=== PATIENT | male | born 1955 | race Caucasian/White ===

== ENCOUNTER 2016-11-28 21:26 | Emergency (ER) | payer SELFPAY | END 2016-11-29 02:39 | disposition home or self-care (01) | LOC: D.ER 21:26 | DX: S09.90XA Unspecified injury of head, initial encounter (principal); W22.8XXA Striking against or struck by other objects, initial encounter; Y93.89 Activity, other specified; Y92.019 Unspecified place in single-family (private) house as the place of occurrence of the external cause; F32.9 Major depressive disorder, single episode, unspecified ==

== ENCOUNTER 2017-06-05 19:31 | Emergency (ER) | payer MEDICAID ==
[2017-06-05 20:10] LABS: BASOPHILS 1.1 % (0-2); EOSINOPHILS 1.4 % (0-7); HEMATOCRIT 35.6 % (42.0-54.0); HEMOGLOBIN 11.8 g/dL (13.5-17.5); IMMATURE GRANULOCYTES 0.2 % (0-5); LYMPHOCYTES 41.5 % (15-50); MCH 29.1 pg (26.0-34.0); MCHC 33.1 g/dL (31.0-37.0); MCV 87.7 fL (80.0-100.0); MEAN PLATELET VOLUME 10.3 fL (7.4-10.4); MONOCYTES 12.9 % (2-11); NEUTROPHILS 42.9 % (40-80); RBC 4.06 10x6/uL (4.20-6.10); RDW 14.3 % (11.5-14.5); WBC 5.7 10x3/uL (4.8-10.8)
[2017-06-05 20:33] LABS: PLATELET COUNT 224 10x3/uL (130-400)
[2017-06-05 20:36] LABS: APPEARANCE HAZY (CLEAR); COLOR YELLOW (YELLOW); LEUKOCYTE ESTERASE TRACE (NEGATIVE); NITRITE NEGATIVE (NEGATIVE); SPECIFIC GRAVITY 1.015 (1.005-1.020)
[2017-06-05 20:37] LABS: BILIRUBIN NEGATIVE (NEGATIVE); GLUCOSE NEGATIVE (NEGATIVE); KETONE NEGATIVE (NEGATIVE); PROTEIN TRACE mg/dL (NEGATIVE); UROBILINOGEN NORMAL (NORMAL)
[2017-06-05 20:38] LABS: BACTERIA FEW /hpf (NONE SEEN); RED CELLS - URINE 25-50 /hpf (0-5)
[2017-06-05 20:47] LABS: ALBUMIN 3.1 g/dL (3.4-5.0); BILIRUBIN - TOTAL 1.4 mg/dL (0.2-1.3); CREATININE - SERUM 2.8 mg/dL (0.6-1.3); PROTEIN - SERUM 7.1 g/dL (6.4-8.2)
== END 2017-06-06 | disposition home or self-care (01) ==
LOC: D.ER 19:31
PROVIDERS: Emergency Medicine
DX: R53.1 Weakness (principal); N39.0 Urinary tract infection, site not specified; D64.9 Anemia, unspecified; N17.9 Acute kidney failure, unspecified

== ENCOUNTER → 2017-08-04 07:53 | Outpatient (CLI) | payer MEDICAID | END | disposition home or self-care (01) | LOC: D.RT 07:53 | DX: I10 Essential (primary) hypertension (principal); I71.2 Thoracic aortic aneurysm, without rupture; R06.02 Shortness of breath ==

== ENCOUNTER 2017-09-02 06:36 | Emergency (ER) | payer MEDICAID ==
[2017-09-02 08:59] LABS: ALKALINE PHOSPHATASE 97 U/L (46-116); ALT (SGPT) 27 U/L (10-68); BILIRUBIN - TOTAL 0.64 mg/dL (0.2-1.3); CALC OSMOLALITY 274 mosm/kg (275-300); CALCIUM 8.7 mg/dL (8.5-10.1); CARBON DIOXIDE 26.1 mmol/L (21.0-32.0); CHLORIDE - SERUM 101 mmol/L (98-107); GLUCOSE 106 mg/dL (74-106); POTASSIUM - SERUM 3.9 mmol/L (3.5-5.1); PROTEIN - SERUM 7.1 g/dL (6.4-8.2); SODIUM 137 mmol/L (136-145); UREA NITROGEN 14 mg/dL (7-18); eGFR NON AFRICAN AMERICAN 81 mL/min (90-120)
[2017-09-02 09:00] LABS: BASOPHILS 0.3 % (0-2); EOSINOPHILS 5.5 % (0-7); HEMOGLOBIN 13.3 g/dL (13.5-17.5); IMMATURE GRANULOCYTES 0.3 % (0-5); LYMPHOCYTES 29.5 % (15-50); MCH 30.5 pg (26.0-34.0); MCHC 34.1 g/dL (31.0-37.0); MCV 89.4 fL (80.0-100.0); MEAN PLATELET VOLUME 9.7 fL (7.4-10.4); MONOCYTES 8.8 % (2-11); NEUTROPHILS 55.6 % (40-80); PLATELET COUNT 241 10x3/uL (130-400); RBC 4.36 10x6/uL (4.20-6.10); RDW 14.4 % (11.5-14.5); WBC 6.4 10x3/uL (4.8-10.8)
== END 2017-09-02 09:26 | disposition home or self-care (01) ==
LOC: D.ER 06:36
PROVIDERS: Emergency Medicine
DX: J44.1 Chronic obstructive pulmonary disease with (acute) exacerbation (principal)

== ENCOUNTER 2018-07-11 10:57 | Observation (INO) | payer MEDICAID ==
[~2018-07-11] VITALS: Ht 188 cm; Wt 94.5 kg
[2018-07-11] MEDS ORDERED: BUPRENORPHINE HC8 MG SL (11:18)
[2018-07-11 12:20] LABS: BASOPHILS 0.3 % (0-2); EOSINOPHILS 9.7 % (0-7); HEMOGLOBIN 15.3 g/dL (13.5-17.5); IMMATURE GRANULOCYTES 0.1 % (0-5); LYMPHOCYTES 26.9 % (15-50); MCH 30.1 pg (26.0-34.0); MCV 88.6 fL (80.0-100.0); MEAN PLATELET VOLUME 10.1 fL (7.4-10.4); MONOCYTES 9.5 % (2-11); NEUTROPHILS 53.5 % (40-80); PLATELET COUNT 221 10x3/uL (130-400); RBC 5.08 10x6/uL (4.20-6.10); RDW 14.2 % (11.5-14.5); WBC 6.7 10x3/uL (4.8-10.8)
[2018-07-11 12:36] LABS: ALBUMIN 3.4 g/dL (3.4-5.0); ALKALINE PHOSPHATASE 94 U/L (46-116); ALT (SGPT) 27 U/L (10-68); BILIRUBIN - TOTAL 1.12 mg/dL (0.2-1.3); CALC OSMOLALITY 282 mosm/kg (275-300); CALCIUM 8.3 mg/dL (8.5-10.1); CARBON DIOXIDE 30.7 mmol/L (21.0-32.0); CHLORIDE - SERUM 105 mmol/L (98-107); CREATININE - SERUM 0.9 mg/dL (0.6-1.3); GLUCOSE 112 mg/dL (74-106); POTASSIUM - SERUM 4.2 mmol/L (3.5-5.1); PROTEIN - SERUM 7.4 g/dL (6.4-8.2); SODIUM 141 mmol/L (136-145); UREA NITROGEN 15 mg/dL (7-18); eGFR NON AFRICAN AMERICAN > 90 mL/min (90-120)
[2018-07-11 12:37] LABS: APPEARANCE CLEAR (CLEAR); BILIRUBIN NEGATIVE (NEGATIVE); COLOR YELLOW (YELLOW); GLUCOSE NEGATIVE (NEGATIVE); KETONE NEGATIVE (NEGATIVE); NITRITE NEGATIVE (NEGATIVE); PROTEIN TRACE mg/dL (NEGATIVE); UROBILINOGEN NORMAL (NORMAL)
[2018-07-11 12:38] LABS: BACTERIA FEW /hpf (NONE SEEN); EPITHELIAL CELLS 0-5 /hpf (0-5); MUCUS >1+ /lpf (NONE SEEN)
[2018-07-11 12:47] LABS: CKMB 8.5 U/L (0.0-3.6); CREATINE KINASE 295 UL (21-232); TROPONIN-I < 0.017 ng/mL (0.000-0.060)
[2018-07-11 13:02] LABS: INR 1.04 (0.85-1.17); PROTIME 13.2 SECONDS (11.6-15.0)
[2018-07-11 13:04] LABS: D-DIMER-QUANTITATIVE 1.01 ug/mLFEU (0.20-0.54)
[2018-07-11 15:56] LABS: MONO NEGATIVE (NEGATIVE)
[2018-07-11] MEDS ORDERED: DOXYCYCLINE HY100 M2 PO ×2 (17:02→17:03)
[2018-07-11 20:22] VITALS: BP 165/88; Ht 188 cm; Wt 94.5 kg
[2018-07-11] MEDS ORDERED: CELEXA20 MG PO (20:22)
[2018-07-11 23:59] VITALS: BP 146/97
[2018-07-12 15:29] LABS: EBV - EARLY ANTIGEN AB IGG 9.6 U/mL (0.0-8.9); EBV VIRAL CAPSID AB IGM <36.0 U/mL (0.0-35.9)
== END 2018-07-12 01:25 | disposition left against medical advice (07) ==
LOC: D.ER 10:57 → OBSVTIME 18:29 → D.M3 18:29
PROVIDERS: Family Medicine
DX: R52 Pain, unspecified (principal); T14.8XXA Other injury of unspecified body region, initial encounter; G89.29 Other chronic pain; M54.9 Dorsalgia, unspecified; Z01.812 Encounter for preprocedural laboratory examination; R11.0 Nausea

== ENCOUNTER → 2018-10-22 12:36 | Outpatient (CLI) | payer MEDICAID ==
[2018-07-11 20:22] VITALS: BMI 26.7
[~2018-10-22 12:36] MED LIST: BUPRENORPHINE HC8 MG SL; CELEXA20 MG PO; DOXYCYCLINE HY100 M2 PO
== END | disposition home or self-care (01) ==
LOC: D.CT 12:36
DX: I71.6 Thoracoabdominal aortic aneurysm, without rupture (principal)

== ENCOUNTER 2019-08-31 18:09 | Emergency (ER) | payer SELFPAY ==
[~2019-08-31] VITALS: Ht 188 cm; Wt 97.7 kg
[2019-08-31 18:36] VITALS: BP 133/83; Ht 188 cm; Wt 97.7 kg
[2019-08-31 19:07] LABS: BASOPHILS 0.6 % (0-2); EOSINOPHILS 6.1 % (0-7); HEMATOCRIT 44.3 % (42.0-54.0); HEMOGLOBIN 15.2 g/dL (13.5-17.5); IMMATURE GRANULOCYTES 0.2 % (0-5); LYMPHOCYTES 26.6 % (15-50); MCH 31.4 pg (26.0-34.0); MCHC 34.3 g/dL (31.0-37.0); MCV 91.5 fL (80.0-100.0); MEAN PLATELET VOLUME 9.8 fL (7.4-10.4); MONOCYTES 8.6 % (2-11); NEUTROPHILS 57.9 % (40-80); PLATELET COUNT 206 10x3/uL (130-400); RBC 4.84 10x6/uL (4.20-6.10); RDW 13.3 % (11.5-14.5); WBC 5.3 10x3/uL (4.8-10.8)
[2019-08-31 19:28] LABS: ALBUMIN 3.6 g/dL (3.4-5.0); ALKALINE PHOSPHATASE 78 U/L (46-116); ALT (SGPT) 32 U/L (10-68); BILIRUBIN - TOTAL 1.19 mg/dL (0.2-1.3); CALC OSMOLALITY 281 mosm/kg (275-300); CALCIUM 8.5 mg/dL (8.5-10.1); CARBON DIOXIDE 29.9 mmol/L (21.0-32.0); CHLORIDE - SERUM 106 mmol/L (98-107); CREATININE - SERUM 0.7 mg/dL (0.6-1.3); GLUCOSE 112 mg/dL (74-106); POTASSIUM - SERUM 4.2 mmol/L (3.5-5.1); PROTEIN - SERUM 6.8 g/dL (6.4-8.2); SODIUM 140 mmol/L (136-145); UREA NITROGEN 18 mg/dL (7-18); eGFR NON AFRICAN AMERICAN > 90 mL/min (90-120)
== END 2019-08-31 20:27 | disposition left against medical advice (07) ==
LOC: D.ER 18:09
PROVIDERS: Family Medicine
DX: M79.603 Pain in arm, unspecified (principal); R51 Headache

== ENCOUNTER 2020-04-06 12:21 | Emergency (ER) | payer SELFPAY ==
[~2020-04-06] VITALS: Ht 188 cm; Wt 96.8 kg
[2020-04-06 12:51] VITALS: Ht 188 cm; Wt 96.8 kg
[2020-04-06] MEDS ORDERED: [UNRECOGNIZED DRUG - REMARK] (12:54)
[2020-04-06 13:33] LABS: HEMATOCRIT 45.3 % (42.0-54.0); HEMOGLOBIN 15.1 g/dL (13.5-17.5); LYMPHOCYTES 22.2 % (15-50); MCH 29.3 pg (26.0-34.0); MCHC 33.3 g/dL (31.0-37.0); MEAN PLATELET VOLUME 9.7 fL (7.4-10.4); NEUTROPHILS 68.8 % (40-80); PLATELET COUNT 211 10x3/uL (130-400); RBC 5.15 10x6/uL (4.20-6.10); RDW 13.3 % (11.5-14.5); WBC 6.1 10x3/uL (4.8-10.8)
[2020-04-06 13:42] LABS: CALC OSMOLALITY 282 mosm/kg (275-300); CALCIUM 8.6 mg/dL (8.5-10.1); CARBON DIOXIDE 27.9 mmol/L (21.0-32.0); CHLORIDE - SERUM 104 mmol/L (98-107); CREATININE - SERUM 0.9 mg/dL (0.6-1.3); GLUCOSE 123 mg/dL (74-106); POTASSIUM - SERUM 3.8 mmol/L (3.5-5.1); SODIUM 140 mmol/L (136-145); UREA NITROGEN 21 mg/dL (7-18); eGFR NON AFRICAN AMERICAN > 90 mL/min (90-120)
[2020-04-06 13:59] LABS: ALBUMIN 3.5 g/dL (3.4-5.0); ALKALINE PHOSPHATASE 84 U/L (30-120); ALT (SGPT) 25 U/L (10-68); BILIRUBIN - TOTAL 1.28 mg/dL (0.2-1.3); CKMB 8.7 U/L (0.0-3.6); CREATINE KINASE 306 UL (21-232); MAGNESIUM - SERUM 1.9 mg/dL (1.8-2.4); PROTEIN - SERUM 7.4 g/dL (6.4-8.2); TROPONIN-I < 0.017 ng/mL (0.000-0.060)
[2020-04-06 14:04] LABS: APTT 27.4 SECONDS (22.8-39.4); INR 0.96 (0.85-1.17); PROTIME 12.8 SECONDS (11.6-15.0)
[2020-04-06 17:02] VITALS: BP 153/92
== END 2020-04-06 17:03 | disposition home or self-care (01) ==
LOC: D.ER 12:21
PROVIDERS: Family Medicine
DX: R60.0 Localized edema (principal); I77.810 Thoracic aortic ectasia; I10 Essential (primary) hypertension; R07.9 Chest pain, unspecified

== ENCOUNTER 2020-07-08 22:30 | Emergency (ER) | payer MEDICAID ==
[~2020-07-08] VITALS: Ht 188 cm; Wt 98.2 kg
[~2020-07-08 22:30] MED LIST changes: +[UNRECOGNIZED DRUG - REMARK]
[2020-07-08 22:51] VITALS: Ht 188 cm; Wt 98.2 kg
[2020-07-09 00:25] LABS: CALC OSMOLALITY 277 mosm/kg (275-300); CALCIUM 8.7 mg/dL (8.5-10.1); CARBON DIOXIDE 32.9 mmol/L (21.0-32.0); CHLORIDE - SERUM 101 mmol/L (98-107); GLUCOSE 100 mg/dL (74-106); POTASSIUM - SERUM 3.9 mmol/L (3.5-5.1); SODIUM 138 mmol/L (136-145); UREA NITROGEN 18 mg/dL (7-18); eGFR NON AFRICAN AMERICAN 80 mL/min (90-120)
[2020-07-09 00:31] LABS: ALBUMIN 3.3 g/dL (3.4-5.0); ALKALINE PHOSPHATASE 61 U/L (30-120); ALT (SGPT) 24 U/L (10-68); BASOPHILS 0.5 % (0-2); BILIRUBIN - TOTAL 0.97 mg/dL (0.2-1.3); CREATINE KINASE 194 UL (21-232); EOSINOPHILS 7.2 % (0-7); HEMATOCRIT 42.1 % (42.0-54.0); HEMOGLOBIN 14.1 g/dL (13.5-17.5); IMMATURE GRANULOCYTES 0.3 % (0-5); LYMPHOCYTES 28.7 % (15-50); MCH 30.5 pg (26.0-34.0); MCHC 33.5 g/dL (31.0-37.0); MCV 91.1 fL (80.0-100.0); MEAN PLATELET VOLUME 9.6 fL (7.4-10.4); MONOCYTES 10.5 % (2-11); NEUTROPHILS 52.8 % (40-80); PLATELET COUNT 205 10x3/uL (130-400); PROTEIN - SERUM 6.7 g/dL (6.4-8.2); RBC 4.62 10x6/uL (4.20-6.10); RDW 13.6 % (11.5-14.5); TROPONIN-I < 0.017 ng/mL (0.000-0.060); WBC 6.1 10x3/uL (4.8-10.8)
[2020-07-09] MEDS ORDERED: ATIVAN1 MG PO (02:02)
[2020-07-09 02:15] VITALS: BP 116/98
== END 2020-07-09 02:15 | disposition home or self-care (01) ==
LOC: D.ER 22:30
PROVIDERS: Emergency Medicine
DX: M51.36 Other intervertebral disc degeneration, lumbar region (principal); R42 Dizziness and giddiness; I10 Essential (primary) hypertension

== ENCOUNTER 2020-07-25 11:49 | Emergency (ER) | payer MEDICAID ==
[~2020-07-25] VITALS: Ht 188 cm; Wt 98.6 kg
[~2020-07-25 11:49] MED LIST changes: +ATIVAN1 MG PO
[2020-07-25 11:51] VITALS: Ht 188 cm; Wt 98.6 kg
[2020-07-25 12:51] LABS: BASOPHILS 0.7 % (0-2); EOSINOPHILS 15.5 % (0-7); HEMATOCRIT 39.4 % (42.0-54.0); HEMOGLOBIN 13.2 g/dL (13.5-17.5); IMMATURE GRANULOCYTES 0.4 % (0-5); LYMPHOCYTES 29.3 % (15-50); MCH 30.6 pg (26.0-34.0); MCHC 33.5 g/dL (31.0-37.0); MCV 91.2 fL (80.0-100.0); MEAN PLATELET VOLUME 9.3 fL (7.4-10.4); MONOCYTES 8.8 % (2-11); NEUTROPHILS 45.3 % (40-80); PLATELET COUNT 171 10x3/uL (130-400); RBC 4.32 10x6/uL (4.20-6.10); RDW 13.3 % (11.5-14.5); WBC 4.6 10x3/uL (4.8-10.8)
[2020-07-25 13:00] LABS: CALC OSMOLALITY 282 mosm/kg (275-300); CALCIUM 8.6 mg/dL (8.5-10.1); CARBON DIOXIDE 28.2 mmol/L (21.0-32.0); CHLORIDE - SERUM 107 mmol/L (98-107); CREATININE - SERUM 0.7 mg/dL (0.6-1.3); GLUCOSE 119 mg/dL (74-106); POTASSIUM - SERUM 3.4 mmol/L (3.5-5.1); SODIUM 141 mmol/L (136-145); UREA NITROGEN 15 mg/dL (7-18); eGFR NON AFRICAN AMERICAN > 90 mL/min (90-120)
[2020-07-25 13:13] LABS: ALKALINE PHOSPHATASE 54 U/L (30-120); ALT (SGPT) 24 U/L (10-68); BILIRUBIN - TOTAL 1.22 mg/dL (0.2-1.3); PRO BNP 41 pg/mL (0-125); PROTEIN - SERUM 6.1 g/dL (6.4-8.2); TROPONIN-I < 0.017 ng/mL (0.000-0.060)
[2020-07-25] MEDS ORDERED: COZAAR50 MG PO (16:24)
[2020-07-25 16:56] VITALS: BP 114/67
== END 2020-07-25 16:57 | disposition home or self-care (01) ==
LOC: D.ER 11:49
PROVIDERS: Family Medicine
DX: R07.9 Chest pain, unspecified (principal); F41.9 Anxiety disorder, unspecified; R79.89 Other specified abnormal findings of blood chemistry; I10 Essential (primary) hypertension; R60.0 Localized edema; E87.6 Hypokalemia; R06.02 Shortness of breath

== ENCOUNTER → 2021-01-29 07:32 | Outpatient (CLI) | payer MEDICAID ==
[2020-12-26 15:34] VITALS: BMI 28.3
[~2021-01-29 07:32] MED LIST changes: +ASPIRIN325 MG PO; +BUMETANIDE0.5 MG PO; +BUMEX2 MG PO; +COZAAR50 MG PO; +GABAPENTIN300 MG PO; +KLONOPIN1 MG PO; +NORVASC5 MG PO; +ZPAK PO
== END | disposition home or self-care (01) ==
LOC: D.US 07:32
PROVIDERS: ATTEND Nurse Practitioner
DX: M79.604 Pain in right leg (principal)

== ENCOUNTER 2021-02-02 12:13 | Emergency (ER) | payer BC ==
[~2021-02-02] VITALS: Ht 188 cm; Wt 100.0 kg
[2021-02-02 12:17] VITALS: BP 154/84; Ht 188 cm; Wt 100.0 kg
[2021-02-02 13:37] LABS: BASOPHILS 0.2 % (0-2); EOSINOPHILS 7.1 % (0-7); HEMATOCRIT 44.6 % (42.0-54.0); HEMOGLOBIN 14.9 g/dL (13.5-17.5); LYMPHOCYTE ABS# 1.35 10x3/uL (1.32-3.57); LYMPHOCYTES 29.9 % (15-50); MCH 28.8 pg (26.0-34.0); MCHC 33.4 g/dL (31.0-37.0); MCV 86.1 fL (80.0-100.0); MEAN PLATELET VOLUME 9.3 fL (7.4-10.4); MONOCYTES 9.3 % (2-11); NEUTROPHIL ABS# 2.42 10x3/uL (1.78-5.38); NEUTROPHILS 53.5 % (40-80); PLATELET COUNT 212 10x3/uL (130-400); RBC 5.18 10x6/uL (4.20-6.10); WBC 4.5 10x3/uL (4.8-10.8)
[2021-02-02 13:50] LABS: CALC OSMOLALITY 275 mosm/kg (275-300); CALCIUM 8.4 mg/dL (8.5-10.1); CARBON DIOXIDE 29.3 mmol/L (21.0-32.0); CHLORIDE - SERUM 102 mmol/L (98-107); CREATININE - SERUM 0.9 mg/dL (0.6-1.3); GLUCOSE 107 mg/dL (74-106); POTASSIUM - SERUM 4.3 mmol/L (3.5-5.1); SODIUM 137 mmol/L (136-145); UREA NITROGEN 18 mg/dL (7-18); eGFR NON AFRICAN AMERICAN 90 mL/min (90-120)
[2021-02-02 13:53] LABS: ALBUMIN 3.4 g/dL (3.4-5.0); ALKALINE PHOSPHATASE 84 U/L (30-120); ALT (SGPT) 36 U/L (10-68); BILIRUBIN - TOTAL 1.11 mg/dL (0.2-1.3)
== END 2021-02-02 14:50 | disposition home or self-care (01) ==
LOC: D.ER 12:13
PROVIDERS: Family Medicine
DX: J02.8 Acute pharyngitis due to other specified organisms (principal); I10 Essential (primary) hypertension

== ENCOUNTER 2021-02-05 09:13 | Emergency (ER) | payer BC ==
[~2021-02-05] VITALS: Ht 188 cm; Wt 90.9 kg
[2021-02-05 09:37] VITALS: BP 116/83; Ht 188 cm; Wt 90.9 kg
== END 2021-02-05 10:25 | disposition left against medical advice (07) ==
LOC: D.ER 09:13
DX: R21 Rash and other nonspecific skin eruption (principal)

== ENCOUNTER 2021-02-11 10:04 | Observation (INO) | payer MEDICAID ==
[~2021-02-11] VITALS: Ht 188 cm; Wt 97.3 kg
[2021-02-11] MEDS ORDERED: LISINOPRIL5 MG PO (10:18)
[2021-02-11 10:54] LABS: BASOPHILS 0.4 % (0-2); HEMATOCRIT 46.4 % (42.0-54.0); HEMOGLOBIN 15.7 g/dL (13.5-17.5); LYMPHOCYTE ABS# 1.38 10x3/uL (1.32-3.57); LYMPHOCYTES 26.1 % (15-50); MCH 28.9 pg (26.0-34.0); MCHC 33.8 g/dL (31.0-37.0); MCV 85.5 fL (80.0-100.0); MEAN PLATELET VOLUME 9.4 fL (7.4-10.4); MONOCYTES 8.7 % (2-11); NEUTROPHIL ABS# 3.21 10x3/uL (1.78-5.38); NEUTROPHILS 60.8 % (40-80); PLATELET COUNT 215 10x3/uL (130-400); RBC 5.43 10x6/uL (4.20-6.10); RDW 14.5 % (11.5-14.5); WBC 5.3 10x3/uL (4.8-10.8)
[2021-02-11 11:03] LABS: CALC OSMOLALITY 277 mosm/kg (275-300); CALCIUM 8.4 mg/dL (8.5-10.1); CARBON DIOXIDE 30.5 mmol/L (21.0-32.0); CHLORIDE - SERUM 103 mmol/L (98-107); GLUCOSE 113 mg/dL (74-106); POTASSIUM - SERUM 4.4 mmol/L (3.5-5.1); SODIUM 138 mmol/L (136-145); UREA NITROGEN 14 mg/dL (7-18); eGFR NON AFRICAN AMERICAN 80 mL/min (90-120)
[2021-02-11 11:17] LABS: APTT 27.6 SECONDS (22.8-39.4); INR 1.11 (0.85-1.17); PROTIME 13.3 SECONDS (11.6-15.0)
[2021-02-11 11:20] LABS: ALBUMIN 3.5 g/dL (3.4-5.0); ALKALINE PHOSPHATASE 93 U/L (30-120); ALT (SGPT) 28 U/L (10-68); BILIRUBIN - TOTAL 1.76 mg/dL (0.2-1.3); CKMB 5.5 U/L (0.0-3.6); CREATINE KINASE 274 UL (21-232); MAGNESIUM - SERUM 2.4 mg/dL (1.8-2.4); PROTEIN - SERUM 6.9 g/dL (6.4-8.2); THYROID STIMULATING HORMONE 2.62 uIU/mL (0.36-3.74); TROPONIN-I < 0.017 ng/mL (0.000-0.060)
[2021-02-11 11:22] LABS: UDS - AMPHET NEGATIVE QUAL (NEGATIVE); UDS - BARB NEGATIVE QUAL (NEGATIVE); UDS - BENZO NEGATIVE QUAL (NEGATIVE); UDS - COCAINE NEGATIVE QUAL (NEGATIVE); UDS - OPIATE NEGATIVE QUAL (NEGATIVE); UDS - PCP NEGATIVE QUAL (NEGATIVE); UDS - THC NEGATIVE QUAL (NEGATIVE)
[2021-02-11 11:29] VITALS: BP 124/60
[2021-02-11 11:51] LABS: BACTERIA FEW HPF (NONE SEEN); BILIRUBIN NEGATIVE (NEGATIVE); KETONE NEGATIVE (NEGATIVE); NITRITE NEGATIVE (NEGATIVE); SQUAMOUS EPITHELIAL RARE HPF (0-4); UROBILINOGEN NORMAL mg/dL (< 2); WHITE CELLS - URINE OCC HPF (0-1)
--- NOTE | 2021-02-11 13:30 | NUR ---
ADMITTED TO 2216. TRANSPORTED BY [facility]/C
[2021-02-11 13:45] VITALS: BP 123/72; BMI 27.5
[2021-02-11 17:06] VITALS: BP 112/65
[2021-02-11 17:37] LABS: CKMB 4.8 U/L (0.0-3.6); CREATINE KINASE 256 UL (21-232)
[2021-02-11 17:46] LABS: TROPONIN-I < 0.017 ng/mL (0.000-0.060)
[2021-02-11 18:00] VITALS: Ht 188 cm; Wt 97.3 kg
--- NOTE | 2021-02-11 19:30 | NUR ---
PT SITTING UP ON SIDE OF BED WITH AT BEDSIDE. STATES EVERY TIME HE BENDS HIS NECK TO THE LEFT HE CAN FEEL IT CUTTING OFF HIS CIRCULATION AND STATES HE NEEDS TO REMEMBER TO TELL DR KNUTSON TOMORROW. IV RIGHT WRIST SL AT THIS TIME BECAUSE PT IS UP WALKING AND EATING AT THIS TIME. DENIES NEEDS. CL IN REACH
[2021-02-11 20:00] VITALS: BP 121/79
[2021-02-11 23:14] LABS: CKMB 4.4 U/L (0.0-3.6); CREATINE KINASE 245 UL (21-232); TROPONIN-I < 0.017 ng/mL (0.000-0.060)
[2021-02-12] VITALS: BP 118/75
[2021-02-12 04:00] VITALS: BP 93/52
[2021-02-12 05:58] LABS: BASOPHILS 0.4 % (0-2); EOSINOPHILS 5.9 % (0-7); HEMATOCRIT 47.6 % (42.0-54.0); HEMOGLOBIN 15.3 g/dL (13.5-17.5); IMMATURE GRANULOCYTES 0.4 % (0-5); LYMPHOCYTE ABS# 1.72 10x3/uL (1.32-3.57); LYMPHOCYTES 32.7 % (15-50); MCH 28.2 pg (26.0-34.0); MCHC 32.1 g/dL (31.0-37.0); MEAN PLATELET VOLUME 9.7 fL (7.4-10.4); MONOCYTES 10.3 % (2-11); NEUTROPHIL ABS# 2.65 10x3/uL (1.78-5.38); NEUTROPHILS 50.3 % (40-80); PLATELET COUNT 206 10x3/uL (130-400); RBC 5.42 10x6/uL (4.20-6.10); RDW 14.7 % (11.5-14.5); WBC 5.3 10x3/uL (4.8-10.8)
[2021-02-12 06:07] LABS: MCV 87.8 fL (80.0-100.0)
[2021-02-12 06:38] LABS: ALBUMIN 3.2 g/dL (3.4-5.0); ALKALINE PHOSPHATASE 84 U/L (30-120); ALT (SGPT) 24 U/L (10-68); BILIRUBIN - TOTAL 1.44 mg/dL (0.2-1.3); CALC OSMOLALITY 277 mosm/kg (275-300); CALCIUM 8.1 mg/dL (8.5-10.1); CARBON DIOXIDE 30.1 mmol/L (21.0-32.0); CHLORIDE - SERUM 103 mmol/L (98-107); CKMB 4.4 U/L (0.0-3.6); CREATINE KINASE 229 UL (21-232); CREATININE - SERUM 0.9 mg/dL (0.6-1.3); GLUCOSE 78 mg/dL (74-106); PROTEIN - SERUM 6.3 g/dL (6.4-8.2); SODIUM 139 mmol/L (136-145); TROPONIN-I < 0.017 ng/mL (0.000-0.060); UREA NITROGEN 15 mg/dL (7-18); eGFR NON AFRICAN AMERICAN 90 mL/min (90-120)
--- NOTE | 2021-02-12 08:00 | NUR ---
ASSESSMENT PER FLOW SHEET. PATIENT IS WITHOUT DISTRESS.MONITOR FOR NEEDS
[2021-02-12 08:55] VITALS: BP 130/81
[2021-02-12 12:37] VITALS: BP 114/75
--- NOTE | 2021-02-12 15:43 | NUR ---
LEFT UNIT VIA WHEELCHAIR FOR TRANSPORT HOME
== END 2021-02-12 15:43 | disposition home or self-care (01) ==
LOC: D.ER 10:04 → OBSVTIME 12:08 → D.MS 12:08
PROVIDERS: Emergency Medicine; ADMIT Family Medicine; ATTEND Family Medicine
DX: G45.9 Transient cerebral ischemic attack, unspecified (principal); I10 Essential (primary) hypertension; R53.1 Weakness

== ENCOUNTER 2021-02-12 22:11 | Emergency (ER) | payer BC ==
[~2021-02-12] VITALS: Ht 188 cm; Wt 93.6 kg
[~2021-02-12 22:11] MED LIST changes: +LISINOPRIL5 MG PO
[2021-02-12 22:29] VITALS: BP 145/80; Ht 188 cm; Wt 93.6 kg
[2021-02-12 23:23] LABS: BASOPHILS 0.5 % (0-2); EOSINOPHILS 3.7 % (0-7); HEMATOCRIT 46.5 % (42.0-54.0); HEMOGLOBIN 15.3 g/dL (13.5-17.5); IMMATURE GRANULOCYTES 0.2 % (0-5); LYMPHOCYTE ABS# 1.97 10x3/uL (1.32-3.57); LYMPHOCYTES 30.3 % (15-50); MCH 28.7 pg (26.0-34.0); MCHC 32.9 g/dL (31.0-37.0); MCV 87.1 fL (80.0-100.0); MEAN PLATELET VOLUME 9.3 fL (7.4-10.4); MONOCYTES 9.8 % (2-11); NEUTROPHIL ABS# 3.61 10x3/uL (1.78-5.38); NEUTROPHILS 55.5 % (40-80); PLATELET COUNT 206 10x3/uL (130-400); RBC 5.34 10x6/uL (4.20-6.10); RDW 14.2 % (11.5-14.5); WBC 6.5 10x3/uL (4.8-10.8)
[2021-02-12 23:34] LABS: APTT 27.4 SECONDS (22.8-39.4); CALC OSMOLALITY 275 mosm/kg (275-300); CALCIUM 8.1 mg/dL (8.5-10.1); CARBON DIOXIDE 27.3 mmol/L (21.0-32.0); CHLORIDE - SERUM 101 mmol/L (98-107); CREATININE - SERUM 1.1 mg/dL (0.6-1.3); GLUCOSE 89 mg/dL (74-106); INR 1.1 (0.85-1.17); POTASSIUM - SERUM 4.5 mmol/L (3.5-5.1); PROTIME 13.2 SECONDS (11.6-15.0); SODIUM 137 mmol/L (136-145); eGFR NON AFRICAN AMERICAN 71 mL/min (90-120)
[2021-02-12 23:35] LABS: UREA NITROGEN 20 mg/dL (7-18)
[2021-02-12 23:51] LABS: ALBUMIN 3.4 g/dL (3.4-5.0); ALKALINE PHOSPHATASE 87 U/L (30-120); ALT (SGPT) 25 U/L (10-68); BILIRUBIN - TOTAL 1.25 mg/dL (0.2-1.3); CKMB 6.4 U/L (0.0-3.6); MAGNESIUM - SERUM 2.3 mg/dL (1.8-2.4); PROTEIN - SERUM 6.8 g/dL (6.4-8.2)
[2021-02-12 23:53] LABS: CREATINE KINASE 310 UL (21-232); TROPONIN-I < 0.017 ng/mL (0.000-0.060)
[2021-02-13 00:39] LABS: UDS - AMPHET NEGATIVE QUAL (NEGATIVE); UDS - BARB NEGATIVE QUAL (NEGATIVE); UDS - BENZO NEGATIVE QUAL (NEGATIVE); UDS - COCAINE NEGATIVE QUAL (NEGATIVE); UDS - OPIATE NEGATIVE QUAL (NEGATIVE); UDS - PCP NEGATIVE QUAL (NEGATIVE); UDS - THC NEGATIVE QUAL (NEGATIVE)
[2021-02-13 00:47] LABS: BILIRUBIN NEGATIVE (NEGATIVE); KETONE NEGATIVE (NEGATIVE); NITRITE NEGATIVE (NEGATIVE); UROBILINOGEN NORMAL mg/dL (< 2)
== END 2021-02-13 03:40 | disposition home or self-care (01) ==
LOC: D.ER 22:11
PROVIDERS: Family Medicine
DX: M79.602 Pain in left arm (principal); Z86.73 Personal history of transient ischemic attack (TIA), and cerebral infarction without residual deficits; I10 Essential (primary) hypertension

== ENCOUNTER 2021-03-27 15:32 | Observation (INO) | payer MEDICAID ==
[~2021-03-27] VITALS: Ht 188 cm; Wt 95.0 kg
--- NOTE | 2021-03-27 15:45 | NUR ---
DR KIRKPATRICK NOTIFIED OF SYMPTOMS, PATIENT STATED HX, AND THAT SYMPTOMS ARE RESOLVED. VERBAL ORDER TO ENTER STROKE ORDER SET AND ARSAVES THE PATIENT.
--- NOTE | 2021-03-27 15:56 | NUR ---
BLOOD DRAWN WITH IV START AND SENT TO LAB.
--- NOTE | 2021-03-27 15:58 | NUR ---
PRIMARY NURSE NARESH MELLO MADE AWARE THAT PATIENT IS BEING ARSAVED AND CVA CONCERNS, NOTIFIED THAT DR KIRKPATRICK WANTS THE PATIENT TAKEN TO CT.
--- NOTE | 2021-03-27 15:58 | NUR ---
CT FINISHING CURRENT PATIENT ON THE TABLE THEN BRINGING THIS PATIENT TO IMAGING.
[2021-03-27 16:05] LABS: BASOPHILS 0.3 % (0-2); EOSINOPHILS 1.5 % (0-7); HEMATOCRIT 50.2 % (42.0-54.0); HEMOGLOBIN 16.8 g/dL (13.5-17.5); IMMATURE GRANULOCYTES 0.2 % (0-5); LYMPHOCYTES 25.4 % (15-50); MCH 28.7 pg (26.0-34.0); MCHC 33.5 g/dL (31.0-37.0); MCV 85.7 fL (80.0-100.0); MEAN PLATELET VOLUME 10.3 fL (7.4-10.4); MONOCYTES 7.6 % (2-11); NEUTROPHIL ABS# 3.84 10x3/uL (1.78-5.38); PLATELET COUNT 226 10x3/uL (130-400); RBC 5.86 10x6/uL (4.20-6.10); RDW 14.1 % (11.5-14.5); WBC 5.9 10x3/uL (4.8-10.8)
[2021-03-27 16:14] LABS: APTT 25.9 SECONDS (22.8-39.4); INR 1.13 (0.85-1.17); PROTIME 13.5 SECONDS (11.6-15.0)
[2021-03-27 16:26] LABS: CALC OSMOLALITY 280 mosm/kg (275-300); CALCIUM 8.6 mg/dL (8.5-10.1); CARBON DIOXIDE 27.9 mmol/L (21.0-32.0); CHLORIDE - SERUM 103 mmol/L (98-107); CREATININE - SERUM 0.9 mg/dL (0.6-1.3); GLUCOSE 86 mg/dL (74-106); POTASSIUM - SERUM 4.1 mmol/L (3.5-5.1); SODIUM 140 mmol/L (136-145); UREA NITROGEN 20 mg/dL (7-18); eGFR NON AFRICAN AMERICAN 90 mL/min (90-120)
[2021-03-27 16:35] LABS: ALBUMIN 3.7 g/dL (3.4-5.0); ALKALINE PHOSPHATASE 78 U/L (30-120); ALT (SGPT) 25 U/L (10-68); BILIRUBIN - TOTAL 2.75 mg/dL (0.2-1.3); CREATINE KINASE 251 UL (21-232); MAGNESIUM - SERUM 2.1 mg/dL (1.8-2.4); PROTEIN - SERUM 7.3 g/dL (6.4-8.2); THYROID STIMULATING HORMONE 2.91 uIU/mL (0.36-3.74); TROPONIN-I < 0.017 ng/mL (0.000-0.060)
[2021-03-27] MEDS ORDERED: LISINOPRIL5 MG PO (18:37)
[2021-03-27] MEDS ORDERED: NEURONTIN800 MG (18:38)
[2021-03-27] MEDS ORDERED: PHENERGAN25 M1 PO (18:38)
[2021-03-27] MEDS ORDERED: KLONOPIN1 MG PO (18:39)
[2021-03-27 20:52] VITALS: BP 160/95
[2021-03-27 23:04] VITALS: Ht 188 cm; Wt 95.0 kg
[2021-03-27 23:43] LABS: BILIRUBIN NEGATIVE (NEGATIVE); KETONE SMALL mg/dL (NEGATIVE); NITRITE NEGATIVE (NEGATIVE); UROBILINOGEN NORMAL mg/dL (< 2)
[2021-03-27 23:48] LABS: UDS - AMPHET NEGATIVE QUAL (NEGATIVE); UDS - BARB NEGATIVE QUAL (NEGATIVE); UDS - BENZO NEGATIVE QUAL (NEGATIVE); UDS - COCAINE NEGATIVE QUAL (NEGATIVE); UDS - OPIATE NEGATIVE QUAL (NEGATIVE); UDS - PCP NEGATIVE QUAL (NEGATIVE); UDS - THC POSITIVE QUAL (NEGATIVE)
[2021-03-28 01:04] VITALS: BP 126/66
[2021-03-28 02:06] LABS: CKMB 4.4 U/L (0.0-3.6); CREATINE KINASE 246 UL (21-232); TROPONIN-I < 0.017 ng/mL (0.000-0.060)
[2021-03-28 05:25] VITALS: BP 103/60
[2021-03-28 06:45] LABS: BASOPHILS 0.4 % (0-2); HEMATOCRIT 45.6 % (42.0-54.0); HEMOGLOBIN 14.9 g/dL (13.5-17.5); IMMATURE GRANULOCYTES 0.3 % (0-5); LYMPHOCYTES 29.8 % (15-50); MCH 28.1 pg (26.0-34.0); MCHC 32.7 g/dL (31.0-37.0); MCV 85.9 fL (80.0-100.0); MEAN PLATELET VOLUME 10.3 fL (7.4-10.4); MONOCYTES 11.1 % (2-11); NEUTROPHIL ABS# 4.09 10x3/uL (1.78-5.38); NEUTROPHILS 55.4 % (40-80); PLATELET COUNT 233 10x3/uL (130-400); RBC 5.31 10x6/uL (4.20-6.10); RDW 14.4 % (11.5-14.5)
[2021-03-28 06:48] LABS: WBC 7.4 10x3/uL (4.8-10.8)
[2021-03-28 07:22] LABS: ALKALINE PHOSPHATASE 64 U/L (30-120); ALT (SGPT) 21 U/L (10-68); BILIRUBIN - TOTAL 2.09 mg/dL (0.2-1.3); CALC OSMOLALITY 281 mosm/kg (275-300); CALCIUM 8.2 mg/dL (8.5-10.1); CARBON DIOXIDE 28.8 mmol/L (21.0-32.0); CHLORIDE - SERUM 103 mmol/L (98-107); CHOL - HDL RATIO 5.2 ratio (2.3-4.9); CHOLESTEROL, TOTAL 253 mg/dL (0-200); GLUCOSE 99 mg/dL (74-106); HDL CHOLESTEROL 49 mg/dL (32-96); LDL CHOLESTEROL 184 mg/dL (0-100); LDL-HDL RATIO 3.8 ratio (1.5-3.5); MAGNESIUM - SERUM 2.2 mg/dL (1.8-2.4); PHOSPHOROUS 3.4 mg/dL (2.5-4.9); PROTEIN - SERUM 6.2 g/dL (6.4-8.2); SODIUM 140 mmol/L (136-145); TRIGLYCERIDE 104 mg/dL (30-200); UREA NITROGEN 21 mg/dL (7-18); eGFR NON AFRICAN AMERICAN 80 mL/min (90-120)
[2021-03-28 07:26] LABS: CKMB 3.9 U/L (0.0-3.6); CREATINE KINASE 210 UL (21-232); TROPONIN-I < 0.017 ng/mL (0.000-0.060)
[2021-03-28 11:28] VITALS: BP 129/74
[2021-03-28] MEDS ORDERED: ATARAX 25 MG TA25 MG PO (12:02)
[2021-03-28] MEDS ORDERED: MUCINEX600 MG PO (12:02)
[2021-03-28] MEDS ORDERED: TESSALON PERLE100 MG PO (12:02)
[2021-03-28 13:21] LABS: CKMB 4.3 U/L (0.0-3.6); CREATINE KINASE 231 UL (21-232); TROPONIN-I < 0.017 ng/mL (0.000-0.060)
== END 2021-03-28 13:49 | disposition home or self-care (01) ==
LOC: D.ER 15:32 → OBSVTIME 17:08 → D.MS 17:08
PROVIDERS: Family Medicine; ADMIT Family Medicine; ATTEND Family Medicine
DX: R07.9 Chest pain, unspecified (principal); F11.23 Opioid dependence with withdrawal; I10 Essential (primary) hypertension; Z86.73 Personal history of transient ischemic attack (TIA), and cerebral infarction without residual deficits; G47.33 Obstructive sleep apnea (adult) (pediatric); N40.0 Benign prostatic hyperplasia without lower urinary tract symptoms; M19.90 Unspecified osteoarthritis, unspecified site

== ENCOUNTER 2021-03-29 13:00 | Emergency (ER) | payer BC ==
[~2021-03-29] VITALS: Ht 188 cm; Wt 94.5 kg
[~2021-03-29 13:00] MED LIST changes: +ATARAX 25 MG TA25 MG PO; +MUCINEX600 MG PO; +NEURONTIN800 MG; +PHENERGAN25 M1 PO; +TESSALON PERLE100 MG PO
[2021-03-29 13:17] VITALS: BP 134/92; Ht 188 cm; Wt 94.5 kg
== END 2021-03-29 14:45 | disposition home or self-care (01) ==
LOC: D.ER 13:00
DX: T46.4X5A Adverse effect of angiotensin-converting-enzyme inhibitors, initial encounter (principal); I10 Essential (primary) hypertension; R42 Dizziness and giddiness

== ENCOUNTER 2021-04-10 22:07 | Emergency (ER) | payer BC ==
[~2021-04-10] VITALS: Ht 188 cm; Wt 97.7 kg
[2021-04-10 22:14] VITALS: Ht 188 cm; Wt 97.7 kg
[2021-04-10] MEDS ORDERED: CLONIDINE HCL0.1 MG PO (22:17)
[2021-04-10 23:08] VITALS: BP 146/84
== END 2021-04-10 23:10 | disposition home or self-care (01) ==
LOC: D.ER 22:07
DX: R42 Dizziness and giddiness (principal); Z86.73 Personal history of transient ischemic attack (TIA), and cerebral infarction without residual deficits; I10 Essential (primary) hypertension

== ENCOUNTER 2021-05-04 14:04 | Emergency (ER) | payer BC ==
[~2021-05-04] VITALS: Ht 188 cm; Wt 105.5 kg
[~2021-05-04 14:04] MED LIST changes: +CLONIDINE HCL0.1 MG PO
[2021-05-04 14:35] VITALS: Ht 188 cm; Wt 105.5 kg
[2021-05-04 15:36] LABS: BILIRUBIN NEGATIVE (NEGATIVE); KETONE NEGATIVE (NEGATIVE); NITRITE NEGATIVE (NEGATIVE); UROBILINOGEN NORMAL mg/dL (< 2)
[2021-05-04 15:38] LABS: BACTERIA FEW HPF (NONE SEEN); WHITE CELLS - URINE 0-5 HPF (0-1)
[2021-05-04] MEDS ORDERED: OMNICEF300 MG PO (16:19)
[2021-05-04 16:29] VITALS: BP 140/80
== END 2021-05-04 16:30 | disposition home or self-care (01) ==
LOC: D.ER 14:04
PROVIDERS: Family Medicine
DX: N39.0 Urinary tract infection, site not specified (principal); R22.40 Localized swelling, mass and lump, unspecified lower limb; Z86.73 Personal history of transient ischemic attack (TIA), and cerebral infarction without residual deficits; I10 Essential (primary) hypertension